=== PATIENT | female | born 1950 | race Caucasian/White ===

== ENCOUNTER 2017-10-19 11:13 | Inpatient (IN) | payer OTHER ==
[2017-10-19 12:09] LABS: ADD MAN DIFF? NO
[2017-10-19] MEDS: FUROSEMIDE 40 MG INJ IV (12:09)
[2017-10-19] MEDS: ASPIRIN 81 MG TAB PO (12:09)
[2017-10-19 12:12] LABS: WHITE BLOOD COUNT 7.1 10^3/ul (4.8-10.8)
[2017-10-19 12:12] LABS: BASOPHILS % 0.6 % (0.0-2.0); EOSINOPHILS # 0.2 10^3/ul (0.0-0.5); EOSINOPHILS % 2.8 % (0.0-7.0); HEMOGLOBIN 12.7 g/dl (12.0-16.0); LYMPHOCYTES # 1.9 10^3/ul (0.8-2.9); LYMPHOCYTES % 26.9 % (15.0-51.0); MEAN CORPUSCULAR HEMOGLOBIN 28.6 pg (29.0-33.0); MEAN CORPUSCULAR HGB CONC 33.4 g/dl (32.0-37.0); MEAN CORPUSCULAR VOLUME 85.6 fl (82.0-101.0); MEAN PLATELET VOLUME 10.2 fl (7.4-10.4); MONOCYTE # 0.7 10^3/ul (0.3-0.9); MONOCYTES % 10.2 % (0.0-11.0); NEUTROPHIL # 4.2 10^3/ul (1.6-7.5); NEUTROPHILS % 59.1 % (39.0-77.0); PLATELET COUNT 188 10^3/UL (140-415); RED BLOOD COUNT 4.44 10^6/ul (4.20-5.40); RED CELL DISTRIBUTION WIDTH 15.8 % (11.5-14.5)
[2017-10-19 12:34] LABS: ALANINE AMINOTRANSFERASE 34 IU/L (13-69); ALBUMIN 3.5 g/dl (3.3-4.9); ALBUMIN/GLOBULIN RATIO 1.12; ALKALINE PHOSPHATASE 78 IU/L (42-121); ANION GAP 17 (8-16); ASPARTATE AMINO TRANSFERASE 36 IU/L (15-46); BILIRUBIN,INDIRECT 0.4 mg/dl (0-1.1); BILIRUBIN,TOTAL 0.4 mg/dl (0.2-1.3); BLOOD UREA NITROGEN 30 mg/dl (7-20); CALCIUM 8.8 mg/dl (8.4-10.2); CARBON DIOXIDE 27 mmol/L (21-31); CHLORIDE 97 mmol/L (97-110); CREATININE 1.12 mg/dl (0.44-1.00); GLUCOSE 156 mg/dl (70-220); LIPASE 147 U/L (23-300); POTASSIUM 5.6 mmol/L (3.5-5.1); SODIUM 135 mmol/L (135-144); TOTAL PROTEIN 6.6 g/dl (6.1-8.1)
[2017-10-19 12:46] LABS: B-TYPE NATRIURETIC PEPTIDE 4950 PG/ML (0-125)
[2017-10-19 12:50] LABS: TROPONIN-I 0.179 ng/ml (0.00-0.12)
[2017-10-19] MEDS: NA POLYST SULFON 15 GM/60 ML BTL PO (13:19)
[2017-10-19] MEDS: ATORVASTATIN 40 MG TAB PO (13:19)
[2017-10-19] MEDS ORDERED: ONDANSETRON 4 MG INJ IV (15:00)
[2017-10-19] MEDS ORDERED: DOCUSATE SODIUM 100 MG CAP PO (15:00)
[2017-10-19] MEDS ORDERED: BISACODYL (EC) 5 MG TAB PO (15:00)
[2017-10-19] MEDS: BUMETANIDE 1 MG INJ IV (15:00)
[2017-10-19] MEDS ORDERED: HYDROCODONE/APAP (5/325) TAB PO (15:00)
[2017-10-19] MEDS ORDERED: LORAZEPAM 0.5 MG TAB PO (15:00)
[2017-10-19] MEDS ORDERED: morphine 2 MG INJ IV (15:00)
[2017-10-19] MEDS ORDERED: LORAZEPAM 1 MG TAB PO (15:00)
[2017-10-19] MEDS ORDERED: DEXTROSE 50% 50 ML SYRINGE IV ×2 (15:30)
[2017-10-19] MEDS ORDERED: GLUCOSE GEL 15 GRAM TUBE BUCCAL (15:30)
[2017-10-19] MEDS ORDERED: GLUCAGON 1 MG INJ IM (15:30)
[2017-10-19] MEDS ORDERED: GLUCOSE GEL 15 GRAM TUBE PO ×2 (15:30)
[2017-10-19 15:32] LABS: CREATINE KINASE 112 IU/L (23-200)
[2017-10-19 15:43] LABS: CK INDEX 2.3
[2017-10-19 17:17] LABS: CK-MB 2.62 ng/ml (0.0-2.4)
[2017-10-19] MEDS: CALCIUM CARBONATE 500 MG CHEW TAB PO (17:31)
[2017-10-19] MEDS: BUMETANIDE 1 MG TAB PO (17:32)
[2017-10-19] MEDS: INSULIN ASPART [NOVOLOG] 3 ML PEN SC (17:33)
[2017-10-19 20:02] LABS: CREATINE KINASE 109 IU/L (23-200)
[2017-10-19 20:15] LABS: CK INDEX 2.1; CK-MB 2.28 ng/ml (0.0-2.4)
[2017-10-19 20:25] LABS: TROPONIN-I 0.223 ng/ml (0.00-0.12)
[2017-10-19] MEDS ORDERED: FAMOTIDINE 20 MG TAB PO (21:00)
[2017-10-20] MEDS: CALCIUM CARBONATE 500 MG CHEW TAB PO ×5 (00:26→20:26)
[2017-10-20] MEDS: ATORVASTATIN 40 MG TAB PO ×2 (00:29→20:27)
[2017-10-20] MEDS: QUETIAPINE 100 MG TAB PO ×2 (00:29→20:26)
[2017-10-20] MEDS: CEFTRIAXONE 1 GM/50 ML (PMX) 50 ML IVPB ×2 (00:35→20:25)
[2017-10-20] MEDS ORDERED: ACCU-CHEK XX (02:00)
[2017-10-20 06:06] LABS: ADD MAN DIFF? NO
[2017-10-20 06:19] LABS: BASOPHILS % 0.6 % (0.0-2.0); EOSINOPHILS # 0.2 10^3/ul (0.0-0.5); EOSINOPHILS % 2.5 % (0.0-7.0); HEMATOCRIT 32.6 % (37.0-47.0); HEMOGLOBIN 10.9 g/dl (12.0-16.0); LYMPHOCYTES # 2.1 10^3/ul (0.8-2.9); LYMPHOCYTES % 32.2 % (15.0-51.0); MEAN CORPUSCULAR HEMOGLOBIN 28.5 pg (29.0-33.0); MEAN CORPUSCULAR HGB CONC 33.4 g/dl (32.0-37.0); MEAN CORPUSCULAR VOLUME 85.3 fl (82.0-101.0); MEAN PLATELET VOLUME 10.5 fl (7.4-10.4); MONOCYTE # 0.6 10^3/ul (0.3-0.9); MONOCYTES % 9.9 % (0.0-11.0); NEUTROPHIL # 3.5 10^3/ul (1.6-7.5); NEUTROPHILS % 54.5 % (39.0-77.0); PLATELET COUNT 173 10^3/UL (140-415); RED BLOOD COUNT 3.82 10^6/ul (4.20-5.40); RED CELL DISTRIBUTION WIDTH 15.9 % (11.5-14.5)
[2017-10-20 06:19] LABS: WHITE BLOOD COUNT 6.4 10^3/ul (4.8-10.8)
[2017-10-20] MEDS: PANTOPRAZOLE (EC) 40 MG TAB PO (06:35)
[2017-10-20 06:44] LABS: ALANINE AMINOTRANSFERASE 42 IU/L (13-69); ALBUMIN 3.1 g/dl (3.3-4.9); ALKALINE PHOSPHATASE 65 IU/L (42-121); ANION GAP 11 (8-16); ASPARTATE AMINO TRANSFERASE 31 IU/L (15-46); BILIRUBIN,INDIRECT 0.3 mg/dl (0-1.1); BILIRUBIN,TOTAL 0.3 mg/dl (0.2-1.3); BLOOD UREA NITROGEN 23 mg/dl (7-20); CALCIUM 8.5 mg/dl (8.4-10.2); CARBON DIOXIDE 34 mmol/L (21-31); CHLORIDE 100 mmol/L (97-110); CHOL/HDL RATIO 5.2 RATIO; CHOLESTEROL 95 mg/dl (100-200); CREATINE KINASE 81 IU/L (23-200); CREATININE 0.95 mg/dl (0.44-1.00); GLUCOSE 56 mg/dl (70-220); HDL CHOLESTEROL 18 mg/dl (35-98); LDL CHOLESTEROL,CALCULATED 59 mg/dl; MAGNESIUM 1.7 mg/dl (1.7-2.5); POTASSIUM 3.8 mmol/L (3.5-5.1); SODIUM 141 mmol/L (135-144); TOTAL PROTEIN 5.9 g/dl (6.1-8.1); TRIGLYCERIDES 88 mg/dl (0-149)
[2017-10-20] MEDS ORDERED: VITAMIN A & D 5 GM OINT PACKET TOP (06:47)
[2017-10-20 06:55] LABS: B-TYPE NATRIURETIC PEPTIDE 6800 PG/ML (0-125); CK INDEX 2.2; CK-MB 1.75 ng/ml (0.0-2.4)
[2017-10-20 06:58] LABS: HEMOGLOBIN A1C 7.1 % (0-5.9)
[2017-10-20] MEDS ORDERED: POTASSIUM CHLORIDE 20 MEQ POWDER FOR ORAL SOLN PO ×3 (07:00)
[2017-10-20 07:08] LABS: TROPONIN-I 0.234 ng/ml (0.00-0.12)
[2017-10-20] MEDS: INSULIN ASPART [NOVOLOG] 3 ML PEN SC ×4 (08:00→20:30)
[2017-10-20] MEDS: BENAZEPRIL 10 MG TAB PO (08:42)
[2017-10-20] MEDS: ESCITALOPRAM 10 MG TAB PO (08:43)
[2017-10-20] MEDS: ASPIRIN 81 MG TAB PO (08:43)
[2017-10-20] MEDS: BUMETANIDE 1 MG TAB PO ×2 (08:43→17:19)
[2017-10-20] MEDS: ARIPIPRAZOLE 2 MG TAB PO (08:43)
[2017-10-20] MEDS: INFLUENZA VIRUS VACCINE 0.5 ML SYG IM* (08:46)
[2017-10-20] MEDS ORDERED: ASPIRIN 81 MG TAB PO (09:00)
[2017-10-20] MEDS ORDERED: NON-FORMULARY/PATIENT OWN MED (Omeprazole* 20 MG) PO (09:00)
[2017-10-20] MEDS ORDERED: LISINOPRIL 5 MG TAB PO (09:00)
[2017-10-20] MEDS: ACETAMINOPHEN 325 MG TAB PO (11:33)
[2017-10-20] MEDS ORDERED: INSULIN ASPART [NOVOLOG] 3 ML PEN SC (12:30)
[2017-10-21] MEDS: ACCU-CHEK XX (02:00)
[2017-10-21] MEDS: BUMETANIDE 1 MG TAB PO ×2 (05:56→17:41)
[2017-10-21] MEDS: PANTOPRAZOLE (EC) 40 MG TAB PO (05:56)
[2017-10-21] MEDS: INSULIN ASPART [NOVOLOG] 3 ML PEN SC ×3 (08:00→17:43)
[2017-10-21] MEDS: ESCITALOPRAM 10 MG TAB PO (08:29)
[2017-10-21] MEDS: CALCIUM CARBONATE 500 MG CHEW TAB PO ×3 (08:29→17:41)
[2017-10-21] MEDS: ASPIRIN 81 MG TAB PO (08:29)
[2017-10-21] MEDS: ARIPIPRAZOLE 2 MG TAB PO (08:37)
[2017-10-21] MEDS: BENAZEPRIL 10 MG TAB PO (08:38)
[2017-10-21 08:58] LABS: ADD MAN DIFF? NO
[2017-10-21 09:03] LABS: WHITE BLOOD COUNT 6.5 10^3/ul (4.8-10.8)
[2017-10-21 09:03] LABS: BASOPHILS % 0.6 % (0.0-2.0); EOSINOPHILS # 0.3 10^3/ul (0.0-0.5); EOSINOPHILS % 4.3 % (0.0-7.0); HEMATOCRIT 36.6 % (37.0-47.0); HEMOGLOBIN 11.8 g/dl (12.0-16.0); LYMPHOCYTES # 1.7 10^3/ul (0.8-2.9); LYMPHOCYTES % 26.2 % (15.0-51.0); MEAN CORPUSCULAR HEMOGLOBIN 27.8 pg (29.0-33.0); MEAN CORPUSCULAR HGB CONC 32.2 g/dl (32.0-37.0); MEAN CORPUSCULAR VOLUME 86.1 fl (82.0-101.0); MEAN PLATELET VOLUME 10.9 fl (7.4-10.4); MONOCYTE # 0.7 10^3/ul (0.3-0.9); NEUTROPHIL # 3.8 10^3/ul (1.6-7.5); NEUTROPHILS % 58.7 % (39.0-77.0); PLATELET COUNT 187 10^3/UL (140-415); RED BLOOD COUNT 4.25 10^6/ul (4.20-5.40); RED CELL DISTRIBUTION WIDTH 15.9 % (11.5-14.5)
[2017-10-21 09:25] LABS: ALANINE AMINOTRANSFERASE 38 IU/L (13-69); ALBUMIN 3.4 g/dl (3.3-4.9); ALBUMIN/GLOBULIN RATIO 1.21; ALKALINE PHOSPHATASE 64 IU/L (42-121); ANION GAP 17 (8-16); ASPARTATE AMINO TRANSFERASE 30 IU/L (15-46); BILIRUBIN,INDIRECT 0.2 mg/dl (0-1.1); BILIRUBIN,TOTAL 0.2 mg/dl (0.2-1.3); BLOOD UREA NITROGEN 16 mg/dl (7-20); CALCIUM 8.6 mg/dl (8.4-10.2); CARBON DIOXIDE 31 mmol/L (21-31); CHLORIDE 98 mmol/L (97-110); CREATININE 0.82 mg/dl (0.44-1.00); GLUCOSE 100 mg/dl (70-220); POTASSIUM 3.8 mmol/L (3.5-5.1); SODIUM 142 mmol/L (135-144); TOTAL PROTEIN 6.2 g/dl (6.1-8.1)
[2017-10-21 09:28] LABS: ADD UMIC YES; UR ASCORBIC ACID NEGATIVE (NEGATIVE); UR BACTERIA FEW /HPF (NONE SEEN); UR BILIRUBIN (Dip) NEGATIVE (NEGATIVE); UR BLOOD (Dip) 3+ mg/dL (NEGATIVE); UR CLARITY CLEAR (CLEAR); UR COLOR YELLOW (YELLOW); UR GLUCOSE (Dip) NEGATIVE (NEGATIVE); UR KETONES (Dip) NEGATIVE (NEGATIVE); UR LEUKOCYTE ESTERASE (Dip) 1+ Leu/ul (NEGATIVE); UR NITRITE (Dip) NEGATIVE (NEGATIVE); UR RBC 153 /HPF (0-5); UR SPECIFIC GRAVITY (Dip) 1.015 (1.003-1.030); UR TOTAL PROTEIN (Dip) 2+ mg/dl (NEGATIVE); UR UROBILINOGEN (Dip) NEGATIVE (NEGATIVE); UR WBC 79 /HPF (0-5)
[2017-10-21 09:30] LABS: MAGNESIUM 1.6 mg/dl (1.7-2.5)
[2017-10-21] MEDS: REGADENOSON 0.4 MG/5 ML SYG (13:56)
[2017-10-24 06:51] LABS: URINE DRUG SCREEN RESULT NO DRUG(S) DETECTED
== END 2017-10-21 19:35 | disposition home health service (06) | DRG 281 ==
LOC: E/R 11:13 → MS3 13:03 → MS4 20:14
DX: I11.0 Hypertensive heart disease with heart failure (principal); I21.4 Non-ST elevation (NSTEMI) myocardial infarction; N39.0 Urinary tract infection, site not specified; E11.21 Type 2 diabetes mellitus with diabetic nephropathy; I50.43 Acute on chronic combined systolic (congestive) and diastolic (congestive) heart failure; E87.5 Hyperkalemia; I25.2 Old myocardial infarction; Z95.5 Presence of coronary angioplasty implant and graft; E11.9 Type 2 diabetes mellitus without complications; F20.9 Schizophrenia, unspecified; F31.9 Bipolar disorder, unspecified
CPT/HCPCS: 36415; 70450; 71045; 78452; 80053; 80061; 80307; 81001; 82550; 82553; 82962; 83036; 83690; 83735; 83880; 84443; 84484; 85025; 87086; 93005; 93017; 93306; 96374; 97161; 97165; 99291-25

== ENCOUNTER 2017-11-01 06:42 | Emergency (ER) | payer OTHER ==
[2017-11-01 10:47] LABS: ADD MAN DIFF? NO
[2017-11-01 10:49] LABS: BASOPHILS % 0.6 % (0.0-2.0); EOSINOPHILS # 0.2 10^3/ul (0.0-0.5); HEMATOCRIT 38.4 % (37.0-47.0); HEMOGLOBIN 12.6 g/dl (12.0-16.0); MEAN CORPUSCULAR HEMOGLOBIN 28.3 pg (29.0-33.0); MEAN CORPUSCULAR HGB CONC 32.8 g/dl (32.0-37.0); MEAN CORPUSCULAR VOLUME 86.1 fl (82.0-101.0); MEAN PLATELET VOLUME 10.2 fl (7.4-10.4); MONOCYTE # 0.6 10^3/ul (0.3-0.9); MONOCYTES % 9.9 % (0.0-11.0); NEUTROPHIL # 3.5 10^3/ul (1.6-7.5); NEUTROPHILS % 54.2 % (39.0-77.0); PLATELET COUNT 146 10^3/UL (140-415); RED BLOOD COUNT 4.46 10^6/ul (4.20-5.40); RED CELL DISTRIBUTION WIDTH 15.5 % (11.5-14.5)
[2017-11-01 10:49] LABS: WHITE BLOOD COUNT 6.4 10^3/ul (4.8-10.8)
[2017-11-01 11:08] LABS: ALANINE AMINOTRANSFERASE 39 IU/L (13-69); ALBUMIN/GLOBULIN RATIO 1.29; ALKALINE PHOSPHATASE 91 IU/L (42-121); ANION GAP 17 (8-16); ASPARTATE AMINO TRANSFERASE 37 IU/L (15-46); BILIRUBIN,INDIRECT 0.3 mg/dl (0-1.1); BILIRUBIN,TOTAL 0.3 mg/dl (0.2-1.3); BLOOD UREA NITROGEN 26 mg/dl (7-20); CALCIUM 8.9 mg/dl (8.4-10.2); CARBON DIOXIDE 29 mmol/L (21-31); CHLORIDE 99 mmol/L (97-110); CREATININE 1.04 mg/dl (0.44-1.00); GLUCOSE 109 mg/dl (70-220); LIPASE 120 U/L (23-300); POTASSIUM 4.4 mmol/L (3.5-5.1); SODIUM 141 mmol/L (135-144); TOTAL PROTEIN 7.1 g/dl (6.1-8.1)
== END 2017-11-01 15:12 | disposition home or self-care (01) ==
LOC: E/R 06:42
DX: R10.31 Right lower quadrant pain (principal); R18.8 Other ascites; I10 Essential (primary) hypertension; I25.10 Atherosclerotic heart disease of native coronary artery without angina pectoris; I50.9 Heart failure, unspecified; E11.9 Type 2 diabetes mellitus without complications; E66.9 Obesity, unspecified; Z98.61 Coronary angioplasty status; Z79.84 Long term (current) use of oral hypoglycemic drugs; Z79.82 Long term (current) use of aspirin
CPT/HCPCS: 36415; 74176; 76830; 76856; 80053; 83690; 85025; 99285-25